=== PATIENT | male | born 1995 | race Caucasian/White ===

== ENCOUNTER 2016-11-16 17:35 | Emergency (ER) | payer OTHER ==
[~2016-11-16 17:35] MED LIST: ADVAIR 100-501 EACH IH; ALBUTEROL17 GM INH; ALLERGY RELIEF10 MG PO; ANUSOL-HC CREAM30 G1 EXT; AZITHROMYCIN250 MG PO; IBUPROFEN800 MG PO; NO MEDICATIONS; PEPCID PO; PREDNISONE PO; PREDNISONE10 MG PO; PROAIR HFA8.5 GM IH; SINGULAIR PO; ULTRAM PO; ZYRTEC10 M2 PO
== END 2016-11-16 18:21 | disposition home or self-care (01) ==
LOC: SED 17:35
DX: J20.9 Acute bronchitis, unspecified (principal); J45.909 Unspecified asthma, uncomplicated; F17.210 Nicotine dependence, cigarettes, uncomplicated
CPT/HCPCS: 94640; 99283